=== PATIENT | female | born 1980 | race Caucasian/White ===

== ENCOUNTER 2025-01-31 07:51 | Emergency (ER) | payer OTHER, SELFPAY ==
[2025-01-31 07:52] VITALS: BP 132/89
--- NOTE | 2025-01-31 08:30 | ED.GENMED ---
History of Present Illness
General
Chief Complaint: Chest Pain
Source: patient
Exam Limitations: none
Time Seen by Provider: 01/31/25 08:01
Nursing documentation reviewed up to this point in time: agreed with
History of Present Illness
History of Present Illness:
44-year-old female with a past medical history of breast cancer status post right lumpectomy and lymph node resection with radiation treatment currently in remission, chronic right upper extremity lymphedema secondary to above who presents to the
emergency department for evaluation of chest pain. Patient reports that for the past few weeks she has had mild congestion and cough occasionally productive of yellow sputum that she attributes to allergies. She says that over the past few days
she has noticed occasional right sided chest pains that are sharp and worse with particular movements. They seem to be a bit worse at night when she is laying on her side. She says that over the past 24 hours she has had more consistent pain in
the right side the becomes more sharp with movement and more sharp with inspiration. This prompted visit to the emergency room. She does report that she has been a bit more active recently with walking and yesterday she lifted up her [place] and so she wonders if it could be muscular pain. Aside from above symptoms she denies any shortness of breath. She has some chronic mild swelling in the ankles but no worse than usual. Denies any leg pain. She denies any abdominal pain,
nausea vomiting, diaphoresis. She denies any known history of heart conditions or DVT/PE.
Past History
Past History
ED Past Medical History: Cancer (Breast CA); Negative Asthma, HTN or Hypercholesterolemia
ED Past Surgical History: Other (Lumpectomy)
Social History
Tobacco: Non-smoker
Alcohol: None
Personal: Single
Living: with family
Review of Systems
Review of Systems
All Other Systems: ROS reviewed and negative except as documented in HPI and ROS
Constitutional: Denies fever or chills
EENT: Reports other (Congestion)
Respiratory: Reports cough; Denies trouble breathing
Cardiac: Reports chest pain; Denies palpitations
ABD/GI: Denies abdominal pain, nausea or vomiting
: Denies flank pain
Musculoskeletal: Denies neck pain or back pain
Neurological: Denies headache
Phy Exam
Physical Exam
Physical Exam:
General: Awake, alert, oriented x3; no acute distress
Head: Normocephalic, atraumatic
Eyes: Conjunctiva normal, sclera anicteric
Throat: Airway intact, handling secretions
Neck: Trachea midline, supple without meningismus
Lungs: Clear to auscultation bilaterally, no wheezing, rales, rhonchi
Heart: Regular rate and rhythm, no murmurs, gallops, or rubs; mild tenderness right parasternal region
Abd: Soft, non distended, nontender to deep palpation
Neuro: Grossly intact
Skin: Warm and dry
Extremities: No lower extremity edema, no calf tenderness, strong pulses in all extremities
Scores
Heart Failure Risk
Heart Failure Risk Score: Not Applicable
Heart Score for Chest Pain Patients
STEMI patient?: No
History: Slightly or Non-Suspicious
ECG: Normal
Age: </= 45 years
Risk Factors: No Risk Factors
Troponin: </= Normal Limit
Heart Score for Chest Pain Patients: 0
Heart Score Risk: 2.5% MACE over next 6 weeks
PE Wells Score
Symptoms of DVT: No
No alternative diagnosis better explains the illness: No
Tachycardia with pulse > 100: No
Immobilization (>=3 days) or surgery within previous 4 weeks: No
Prior history of DVT or pulmonary embolism: No
Presence of hemoptysis: No
Presence of malignancy: Yes
Pulmonary Embolism Risk Score: 1
Probability of PE: Pt is low risk
Withdrawal Assessment of Alcohol
Withdrawal Assessment Completed?: Not applicable
Course
Orders/Labs/Results
Orders:
Orders
01/31/25 07:56
Electrocardiogram (*1) Urgent
Reason for Study: Chest Pain
EKG- Treatment ONCE
01/31/25 08:31
Complete Blood Count/With Diff Urgent
Comprehensive Metabolic Panel Urgent
D-Dimer Urgent
HCG, Serum Qualitative Screen Urgent
Comment: ADD ON
Lipase Urgent
PTT Urgent
Prothrombin Time Urgent
Troponin I Urgent
01/31/25 08:36
Ketorolac [Toradol] 15 mg IV NOW STA
01/31/25 09:05
0.9% Sodium Chloride 1000 ml [Nss] 1,000 ml IV BOLUS
01/31/25 09:06
Add On- LAB Urgent
Tests Added?: HCG qual
01/31/25 09:11
CT Chest PE Study Urgent
Comment:
Reason For Exam: right sided CP, +dimer
01/31/25 09:41
Urinalysis Reflex To Culture Urgent
Date Specimen was Collected: 01/31/25
Time Specimen was Collected: 09:37
Urine Microscopic Reflex Cult Urgent
Abnormal Lab Results
01/31/25 01/31/25
08:31 09:41
MCHC 32.7 L g/dL
(33.0-37.0)
Lymphocytes % 19.4 L %
(20.5-51.1)
Eosinophils % 7.5 H %
(0-6)
D-Dimer 0.51 H ug/mlFEU
(0.00-0.50)
Creatinine 1.1 H mg/dL
(0.6-1.0)
Ur Occult Blood Reflex 1+ A
(Negative)
Urine Bacteria (Reflex) Few A
(Negative)
01/31/25 08:31
01/31/25 08:31
Vital Signs
Initial and Last Documented VS:
Initial Vital Signs
Temp Pulse Resp BP Pulse Ox
36.7 C 88 18 132/89 99
01/31/25 07:52 01/31/25 07:52 01/31/25 07:52 01/31/25 07:52 01/31/25 07:52
Last Documented Vital Signs
Temp Pulse Resp BP Pulse Ox
36.7 C 65 20 106/80 97
01/31/25 07:52 01/31/25 09:15 01/31/25 09:15 01/31/25 11:42 01/31/25 12:15
MDM/Problems Addressed
Differential Diagnosis Includes:
Costochondritis, pneumothorax, pneumonia, PE, pericarditis, ACS
MDM/Problems Addressed:
44-year-old female presents for evaluation of sharp right sided chest pain intermittently past few days but more consistent over the past 24 hours; she has had some URI/allergy symptoms including cough for the past 2 weeks. Vitals and exam are as
above. Her EKG shows sinus rhythm no STEMI. Plan to check labs including a CBC and a CMP. Will check troponin. Check a D-dimer. Will check a chest x-ray. Reassess after the above.
Labs reviewed: CBC no clinically significant abnormalities, CMP mild [place] but otherwise unremarkable. D-dimer was positive and so chest x-ray canceled in favor of CT chest. Troponin undetectable x 1 and with symptoms for the past few weeks
including constant since last night is sufficient to rule out acute OK.
CT chest shows no evidence of PE or any other acute abnormalities. Suspect this may be some costochondritis in the setting of recent cough. Stable for discharge trial of NSAIDs. Patient comfortable with this plan. All questions answered.
Chronic conditions affecting care:
Breast cancer status postlumpectomy and radiation treatment
*Pulse Oximetry
SaO2: 99
Oxygen Mode of Delivery: Room air
Patient hypoxic: no
*EKG
Interpreted by ED Provider?: Yes
Heart Rate: 68
Rate: normal
Rhythm: sinus
[place]: normal axis
Interval: normal interval
QRS Pattern: normal QRS
Ischemia: no ischemia
*Critical Care Note
Total Time (30-74mins, 75-104mins- exclusive of procedures): Not Applicable
Data Reviewed
Source: patient and records
ED Attending Note
-
Portions of this chart may have been created with voice recognition software.� Occasional wrong word or��sound alike� substitutions may have occurred due to the inherent limitations of voice recognition software.
Discharge Plan
Departure
Patient Disposition: Home (Routine Discharge)
Date of Disposition: 01/31/25
Time of Disposition: 12:41
Patient with high blood pressure during this ER visit?: No
Discharge Problem:
Chest pain
Instructions: Costochondritis (DC), Chest Pain PCP Follow Up
Prescriptions:
No Action
cefdinir 300 mg capsule
300 mg PO BID Qty: 14 0RF
Referrals:
Marino Estrada MD [Family Provider, Internal Medicine] - Follow up in 1 week
Activity Restrictions/Additional Instructions:
Thank you for visiting the Emergency Department at [facility].
1. Please schedule a follow up appointment as directed. Call first thing tomorrow morning to make an appointment.
2. If indicated, please take your medications as instructed and indicated on discharge paperwork.
3. If any of your symptoms do not improve, or persist, or become more severe within 6-12 hours, please return to the emergency department for further care.
4. Please return to the emergency department if you develop a headache, neck pain/stiffness, fever greater than 100.4F, chest pain, shortness of breath, persistent nausea, vomiting, slurred speech, difficulty walking, numbness/tingling, weakness,
signs of infection or any other symptoms that are worrisome to you.
Please call [phone] if you have any questions.
Interventions
Interventions:
*Risk Screen - Suicide Last Done: 01/31/25 07:52
*General Assessment Last Done: 01/31/25 07:52
*Neglect/Abuse Screening Last Done: 01/31/25 07:52
*ED- Fall Risk Assessment Last Done: 01/31/25 08:11
*ED COVID-19 Vaccine History Last Done: 01/31/25 08:11
*ED Influenza Vaccine History Last Done: 01/31/25 08:11
ED- Cardiac Assessment Last Done: 01/31/25 08:12
Discharge Date and Time
Print Language: NEPALI
--- NOTE | 2025-01-31 08:36 | EDRN ---
POX note of ' 80' at 0810 is a computer error ..Sats are 95-98 % on RA
[2025-01-31 08:41] LABS: Hematocrit 39.1 % (37.0-47.0); Hemoglobin 12.8 g/dL (12.0-16.0); Mean Corp Hgb Conc. 32.7 g/dL (33.0-37.0); Mean Corpuscular Volume 83.5 fL (81.0-99.0); Nucleated Red Blood Cells % 0 %; Platelet Count 325 10^3/uL (130-400); Red Cell Dist. Width 13.0 % (11.5-14.5)
[2025-01-31 08:42] VITALS: BP 102/68
[2025-01-31] MEDS: TORADOL 15 MG IV (08:43)
[2025-01-31 08:50] LABS: INR 0.94; PT 12.9 Sec (11.4-14.6)
[2025-01-31 08:51] LABS: APTT 34.8 Sec (23.4-35.0)
[2025-01-31 08:52] LABS: AST (SGOT) 18 U/L (14-36); Albumin 4.4 g/dl (3.5-5.0); Blood Urea Nitrogen 17 mg/dl (7-17); Carbon Dioxide 26 mmol/L (22-30); Total Protein 7.4 g/dl (6.3-8.2); eGFR > 60.00
[2025-01-31 08:53] LABS: D-Dimer 0.51 ug/mlFEU (0.00-0.50)
[2025-01-31 09:00] VITALS: BP 100/69
[2025-01-31 09:03] LABS: ALT (SGPT) 14 U/L (0-35); Alkaline Phosphatase 84 U/L (38-126); Calcium 9.5 mg/dl (8.4-10.2); Chloride 105 mmol/L (98-107); Glucose 84 mg/dl (70-99); Lipase 126 U/L (23-300); Potassium 4.1 mmol/L (3.5-5.1); Sodium 139 mmol/L (135-145)
[2025-01-31 09:14] LABS: Troponin I 0.012 ng/ml
[2025-01-31] MEDS: NSS 1000 IV (09:45)
[2025-01-31 09:52] LABS: Urine Character Clear (Clear)
[2025-01-31 09:58] LABS: Urine Red Blood Cell 0-2 /HPF (0-2); Urine White Cell 0-2 /HPF (0-5)
[2025-01-31 10:02] LABS: HCG, Serum Qualitative Screen Negative
[2025-01-31 10:38] VITALS: BP 120/76
[2025-01-31 11:42] VITALS: BP 106/80
== END 2025-01-31 13:18 | disposition home or self-care (01) ==
LOC: EMR 07:51
PROVIDERS: EMERGENCY PHYSICIAN Emergency Medicine; FAMILY PHYSICIAN Internal Medicine
DX: R07.9 Chest pain, unspecified (principal); I89.0 Lymphedema, not elsewhere classified; Z85.3 Personal history of malignant neoplasm of breast; Z92.3 Personal history of irradiation
CPT/HCPCS: 99284; 96374; 96361; 71275; 80053; 81003; 81015; 83690; 84484; 84703; 85025; 85379; 85610; 85730; 93005; Q9967